=== PATIENT | male | born 1990 | race Hispanic/Latino ===

== ENCOUNTER 2017-04-03 13:43 | Emergency (ER) | payer SELFPAY ==
--- NOTE | 2017-04-03 14:56 | C.PDOC ---
History Of Present Illness 04/03/2017 Chaparro Tipton is a 26 y/o male who presents to the ED complaining of body aches and back pain. He reports recently traveling from [facility] and was on a Methadone program. He currently has no methadone in his system and has developed body ache symptoms and nausea ever since. Patient denies fever, shortness of breath, chest pain, diarrhea, or other complaints. Time Seen by Provider: 04/03/17 14:30 Chief Complaint (Nursing): Back Pain History Per: Patient History/Exam Limitations: no limitations Current Symptoms Are (Timing): Still Present Associated Symptoms: Other (body tremors and nausea) Past Medical History Reviewed: Historical Data, Nursing Documentation, Vital Signs Vital Signs: Last Vital Signs Temp 98.0 F 04/03/17 15:00 Pulse 85 04/03/17 15:00 Resp 18 04/03/17 15:00 BP 121/75 04/03/17 15:00 Pulse Ox 100 04/03/17 17:25 Family History: States: No Known Family Hx - Social History Hx Alcohol Use: No Hx Substance Use: No - Immunization History Hx Tetanus Toxoid Vaccination: No Hx Influenza Vaccination: No Hx Pneumococcal Vaccination: No Review Of Systems Constitutional: Negative for: Fever Cardiovascular: Negative for: Chest Pain Respiratory: Negative for: Shortness of Breath Gastrointestinal: Positive for: Nausea. Negative for: Vomiting Neurological: Positive for: Other (mild tremors) Physical Exam - Physical Exam Appears: Well, Non-toxic, No Acute Distress Skin: Normal Color, Warm, Dry, No Rash Head: Atraumatic, Normacephalic Eye(s): bilateral: Normal Inspection, PERRL, EOMI Oral Mucosa: Moist Throat: No Erythema, No Exudate Neck: Normal ROM, Supple Chest: Symmetrical, No Tenderness Cardiovascular: Rhythm Regular, No Friction Rub, No Murmur Respiratory: Normal Breath Sounds Gastrointestinal/Abdominal: Soft, No Tenderness Extremity: Normal ROM, No Tenderness, No Swelling Neurological/Psych: Oriented x3, Normal Speech, Normal Motor, Normal Sensation, Other (mild tremors) Gait: Steady ED Course And Treatment O2 Sat by Pulse Oximetry: 100 (room air) Pulse Ox Interpretation: Normal Medical Decision Making Medical Decision Makin04/03/2017 Plan: -- Catapres and Zofran -- Reassess and disposition Re-evaluation: Discussed results and plan with patient. Patient given information for methadone programs. Patient understands results and is agreeable with plan. All questions answered. On re-exam, the patient reports improvement of symptoms. Lungs are CTA, heart is RRR, abdomen is soft non-tender and tolerating Po well. Ambulatory in the ED with steady gait. Follow up with the medical doctor within 1-2 days. Return if worsened. Disposition - Disposition Referrals: [facility] [Outside] Disposition: HOME/ ROUTINE Disposition Time: 14:53 Condition: GOOD Additional Instructions: Follow up with the medical doctor within 1-2 days. Return if worsened. Prescriptions: Clonidine HCl [Catapres] 0.1 mg PO BID #7 tablet Ondansetron ODT [Zofran ODT] 1 odt PO BID PRN #10 odt PRN Reason: Nausea/Vomiting Instructions: Opioid Withdrawal (ED) Forms: [employer] ([employer]) - Clinical Impression Clinical Impression: Opioid withdrawal - Scribe Statement The provider has reviewed the documentation as recorded by the Scribe 04/03/2017 Scribe Attestation: Judie Flores MD Scribe Attestation: All medical record entries made by the Scribe were at my direction and personally dictated by me. I have reviewed the chart and agree that the record accurately reflects my personal performance of the history, physical exam, medical decision making, and the department course for this patient. I have also personally directed, reviewed, and agree with the discharge instructions and disposition.
[2017-04-03 15:01] VITALS: BP 121/75; PULSE 85; RESP 18; TEMP 98
[2017-04-03 17:23] VITALS: O2SAT 100
== END 2017-04-03 15:03 | disposition home or self-care (01) ==
LOC: C.ER 13:43
DX: F11.23 Opioid dependence with withdrawal (principal)